=== PATIENT | female | born 1935 | race Caucasian/White ===

== ENCOUNTER 2017-10-19 17:28 | Emergency (ER) | payer OTHER, MEDICAID ==
[~2017-10-19] VITALS: Ht 154.9 cm; Wt 54.4 kg
[~2017-10-19 17:28] MED LIST: AMBIEN5 MG PO; AMOXICILLIN875 MG PO; COMBIVENT INH; DUONEB 2.5-0.5 M3 ML INH; EFFEXOR 5050 MG/1 T1 PO; IRON325 PO; LISINOPRIL5 MG PO; PERCOCET; PREDNISONE 10 M10 MG PO; PROVENTIL HFA6.7 G1 INH; SYMBICORT160 MCG/4. INH; SYNTHROID25 MCG PO; VITAMIN B COMP1 EACH PO; VITAMIN D1000 UNI1 PO
[2017-10-19] MEDS ORDERED: HYDROCODON-ACE1 EAC7 PO (18:34)
[2017-10-19 19:15] VITALS: BP 105/55
== END 2017-10-19 19:16 | disposition home or self-care (01) ==
LOC: M.ERS 17:28
DX: S90.32XA Contusion of left foot, initial encounter (principal); S40.011A Contusion of right shoulder, initial encounter; W01.0XXA Fall on same level from slipping, tripping and stumbling without subsequent striking against object, initial encounter; Y93.89 Activity, other specified; Y92.89 Other specified places as the place of occurrence of the external cause; Y99.8 Other external cause status

== ENCOUNTER 2018-03-01 13:23 | Emergency (ER) | payer OTHER, MEDICAID ==
[~2018-03-01] VITALS: Ht 154.9 cm; Wt 54.4 kg
[~2018-03-01 13:23] MED LIST changes: +HYDROCODON-ACE1 EAC7 PO
[2018-03-01 14:58] VITALS: BP 157/73
== END 2018-03-01 14:59 | disposition home or self-care (01) ==
LOC: M.ERS 13:23
DX: R51 Headache (principal); M54.2 Cervicalgia; J44.9 Chronic obstructive pulmonary disease, unspecified

== ENCOUNTER 2018-08-08 10:43 | Observation (INO) | payer OTHER, MEDICAID ==
[~2018-08-08] VITALS: Ht 154.9 cm; Wt 54.0 kg
[2018-08-08 10:51] VITALS: BP 130/71
[2018-08-08] MEDS ORDERED: COZAAR 25 MG TA25 M1 PO (11:02)
[2018-08-08] MEDS ORDERED: ZOLOFT25 MG PO (11:03)
[2018-08-08] MEDS ORDERED: BROVANA15 MCG/2 M INH (11:03)
[2018-08-08 11:16] LABS: ABSOLUTE BASOPHILS 0.1 thou/uL (0.0-0.2); ABSOLUTE EOSINOPHILS 0.1 thou/uL (0.0-0.7); ABSOLUTE MONOCYTES 0.9 thou/uL (0.0-1.2); ABSOLUTE NEUTROPHILS 5.4 thou/uL (1.6-8.1); BASOPHILS 0.9 %; EOSINOPHILS 0.8 %; HEMATOCRIT 40.6 % (37.0-47.0); LYMPHOCYTES 24.1 %; MCH 33.2 pg (26.0-34.0); MCHC 34.5 g/dL (28.0-37.0); MCV 96.3 fL (80.0-100.0); MONOCYTES 10.1 %; MPV 6.5 fl. (7.2-11.1); NUCLEATED RBCS 0 /100WBC; PLATELET COUNT* 222 thou/uL (150-400); POLYS 64.1 %; RBC 4.22 mil/uL (4.20-5.00); RDW-CV 12.8 % (10.5-14.5); WBC 8.5 thou/uL (4.0-11.0)
[2018-08-08 11:26] LABS: ANION GAP 6 mmol/L (7-16); BUN 10 mg/dL (7-18); CALCIUM 8.8 mg/dL (8.5-10.1); CHLORIDE 105 mmol/L (98-107); CO2 29 mmol/L (21-32); CREATININE 0.7 mg/dL (0.6-1.3); GLUCOSE 96 mg/dL (70-99); POTASSIUM 4.1 mmol/L (3.5-5.1); SODIUM 140 mmol/L (136-145)
[2018-08-08 11:28] LABS: APTT 20.1 Seconds (25.0-31.3); INR 0.9
[2018-08-08 11:36] LABS: ALBUMIN 3.4 g/dL (3.4-5.0); ALKALINE PHOSPHATASE 77 U/L (46-116); LIPASE 122 U/L (73-393); MAGNESIUM 2.3 mg/dL (1.8-2.4); NT-PRO BRAIN NAT PEPTIDE 381 pg/mL (<300); SGOT 24 U/L (15-37); SGPT 26 U/L (30-65); TOTAL BILIRUBIN 0.4 mg/dL (<0.1-1.0); TOTAL PROTEIN 6.4 g/dL (6.4-8.2); TROPONIN-I LEVEL <0.06 ng/mL (<0.06)
[2018-08-08 14:06] VITALS: BP 183/75
--- NOTE | 2018-08-08 14:51 | EKG ---
[place] [address] ELECTROCARDIOGRAM REPORT Name: PROSPER ELAM Room: [address] ADM IN .R.#: [id number] Admission: 08/08/18 Attend Phys: Bernardino Bloom MD Discharge: Date of : 37 Report #: [id number] THIS REPORT FOR: //name// [facility] ED Test Date: 2018-08-08 Test Time: 11:16:24 Pat Name: PROSPER ELAM Department: Room: [facility] Gender: F Train Conductor: Marcelino DOZIER : 1935 Requested By: Hermann Mendosa Order Number: [id number] MD: Bin Saldana Measurements Intervals [place] Rate: 66 P: -81 OR: 73 QRS: 27 QRSD: 85 T: 34 QT: 401 QTc: 421 Interpretive Statements Sinus or ectopic atrial rhythm Ventricular trigeminy Short OR interval Compared to ECG 02/21/2017 08:28:12 Ectopic atrial rhythm now present Ventricular premature complex(es) now present Sinus rhythm no longer present T-wave abnormality no longer present Electronically Signed On 08-08-2018 14:51:21 CDT by Bin Saldana [email or web address] <ELECTRONICALLY SIGNED> By: Bin Saldana MD, FACC 08/08/18 1451 1116 [id number] Bin Saldana MD, FACC /EPI
--- NOTE | 2018-08-08 15:30 | NUR ---
PT TO ROOM,ORIENTED TO ROOM,CALL LIGHT WITHIN REACH
[2018-08-08 21:26] LABS: BE -2.9 mmol/L (-2 to +3); PCO2 35.1 mmHg (35.0-45.0); PO2 72.8 mmHg (75.0-100.0); pH 7.398 (7.340-7.450)
[2018-08-08 21:58] VITALS: BP 133/49
[2018-08-09 04:10] LABS: ABSOLUTE LYMPHOCYTES 1.1 thou/uL (0.8-5.3); ABSOLUTE MONOCYTES 0.1 thou/uL (0.0-1.2); ABSOLUTE NEUTROPHILS 7.3 thou/uL (1.6-8.1); BASOPHILS 0.1 %; HEMATOCRIT 38.3 % (37.0-47.0); HEMOGLOBIN 13.1 gm/dL (12.0-15.0); LYMPHOCYTES 13.4 %; MCH 32.8 pg (26.0-34.0); MCHC 34.2 g/dL (28.0-37.0); MONOCYTES 1.4 %; MPV 6.8 fl. (7.2-11.1); NUCLEATED RBCS 0 /100WBC; PLATELET COUNT* 206 thou/uL (150-400); POLYS 85.1 %; RBC 3.99 mil/uL (4.20-5.00); RDW-CV 12.7 % (10.5-14.5); WBC 8.6 thou/uL (4.0-11.0)
[2018-08-09 04:35] LABS: CALCIUM 9.5 mg/dL (8.5-10.1); CREATININE 0.8 mg/dL (0.6-1.3); MAGNESIUM 2.3 mg/dL (1.8-2.4); POTASSIUM 4.5 mmol/L (3.5-5.1)
--- NOTE | 2018-08-09 05:20 | NUR ---
PT UP AD ONEYDA IN ROOM TO BATHROOM AND CHAIR PRN. HAS SLEPT WELL OVERNIGHT. RECEIVED TYLENOL AT HS FOR CO HEADACHE WITH GOOD RESULTS ROOM AIR SAT 95%. RT TX GIVEN. ABG'S DRAWN. PULMONARY TO CONSULT. LAC SL, SOLUMEDROL GIVEN ORDERED, PO ABX. 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 ABLE TO USE CALL LITE AND MAKE NEEDS KNOWN. DNR. TO HAVE CARDIAC ECHO TODAY.
[2018-08-09 08:00] VITALS: BP 142/66
--- NOTE | 2018-08-09 15:07 | NUR ---
SW met with pt to complete initial assessment, introduce self, and SW role. Pt alert, oriented. Pt continues to live in independent living facility. Pt has a cane if needed. Pt does not have hx with HH or SNF. Pt does not anticipate any dc needs.
[2018-08-09] MEDS ORDERED: AZITHROMYCIN 2250 MG PO (15:52)
[2018-08-09] MEDS ORDERED: PREDNISONE 10 M10 MG PO (15:53)
[2018-08-09 16:10] VITALS: BP 142/66
--- NOTE | 2018-08-09 16:23 | NUR ---
DISCHARGE NOTE - REVIEWED DC INSTRUCTIONS WITH PT. NO QUESTIONS. PREDNISONE AND ZITHROMAX CALLED OUT TO [facility]. ALL BELONGINGS SENT WITH PT. IV REMOVED.
--- NOTE | 2018-08-10 10:04 | CON ---
[address] [address] CONSULTATION Name: PROSPER ELAM Room: [address] [place] Chu#: [id number] Admission: 08/08/18 Attend Phys: Bernardino Bloom MD Discharge: 08/09/18 Date of : 37 Report #: [id number] THIS REPORT FOR: //name// CC: Jono Bloom REQUESTING PHYSICIAN: Dr. Bloom. REASON FOR CONSULTATION: History of chronic obstructive pulmonary disease. DISCUSSION: The patient is a pleasant 83-year-old nonsmoking woman who has a history of underlying COPD as well as restrictive lung disease. She has not been steroid or O2 dependent. She has been a longtime patient of my partner, Dr. Ge in our office. Her last visit with him was back in 01/2018. She was admitted to [facility] due to several days of increasing shortness of breath. She does believe it was related to the weather change. She was having a bit more cough and congestion, though did not feel like she had a significant infection. She was doing nebulizer treatments at home, but she was still having a lot of wheezing. No fevers. No chest pain, no syncopal episodes. She was admitted, was started on inhaled bronchodilators and IV steroids. When I saw her this afternoon, she is feeling good. In fact, she is asking if she can go home. She is a lifelong nonsmoker. She did have a left lower lobectomy done when she was in her 30s. She noted she has had significant pneumonia when she was a child and had recurrent infections. Based on her history, I suspect she probably had bronchiectasis. No history of TB or exposure to tuberculosis. [place] exposure. No TB history. When she last had spirometry done, it was consistent with a combined obstructive and restrictive process. Her FEV1 was 0.93, which was 49% of predicted. Her FEV1/FVC ratio was 66%. Overall, her flows were stable. Mid flows were severely decreased. She intermittently has required short courses of steroids. She has O2 at home. I do not have access to the type of testing that was done, but I do note she was ambulated in the office in 01/2018. She had no desaturation and there was no need for O2 with exertion at that time. She does relate she has had overnight oximetry done in the past, though I do not have access to those results. She has not been consistently sleeping with it at night. Reviewing our office notes and talking with her, there is somewhat of a discrepancy on her medications. She does have a DuoNeb, which she does at least 4 times a day. She tells me she also has Brovana, which she does twice a day. Has Symbicort at home, but she uses that "p.r.n." If she is on Brovana, patients would not normally also be taking Symbicort. 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 She is up-to-date I believe with her immunizations. [address] [address] CONSULTATION Name: PROSPER ELAM Room: [address] [place] Chu#: [id number] Admission: 08/08/18 Attend Phys: Bernardino Bloom MD Discharge: 08/09/18 Date of : 37 Report #: [id number] She has been afebrile here in the hospital. She is on room air. Again, she is feeling quite good. Has had minimal cough, her secretions have been clear. No fevers. PAST MEDICAL HISTORY: Besides the COPD is remarkable also for the prior left thoracotomy with lobectomy done for presumed bronchiectasis. She has had ACDF cervical spine in 2011, several lumbar spine surgeries, bilateral shoulder surgeries, prior appendectomy, kyphoplasty, cataract surgery, hypertension, GERD, osteoporosis, adrenal lesions. SOCIAL HISTORY: She is a lifelong nonsmoker. She is retired. Lives in a senior housing. FAMILY HISTORY: Positive for breast cancer, coronary artery disease, and diabetes. REVIEW OF SYSTEMS: ROS was done. Note positives above. No chest pain, no syncopal episodes. Denies any difficulty swallowing. Not have any major issues with indigestion, heartburn. No nausea, vomiting, no diarrhea. No lower extremity edema. No recent skin rashes. Does have some joint pains primarily in her knees. Does limit some of her mobility. No falls. PHYSICAL EXAMINATION: GENERAL APPEARANCE: Pleasant woman who looks stated age. She was seen while sitting up in the chair. She is alert, cooperative, able to speak in full sentences. VITAL SIGNS: She is on room air. HEENT: Head is normocephalic. Sclerae nonicteric. Mucous membranes are moist. NECK: Negative for adenopathy. No JVD. No supraclavicular adenopathy. HEART: Regular. Just minimally tachycardic, no S3 is heard. Tones are little distant. CHEST: On the chest, she has a well-healed left thoracotomy scar. LUNGS: Show breath sounds to be mildly diminished. No wheezing or crackles are heard. Slight prolongation of expiratory phase. She is kyphotic. No CVA tenderness. ABDOMEN: Obese, but soft. EXTREMITIES: She has some arthritic changes of her hands, but no clubbing. Lower extremities turgor is fair. No definite edema is noted. No calf tenderness. SKIN: Warm and dry. NEUROLOGIC: She is alert and oriented x 3. LABORATORY AND X-RAY FINDINGS: She did have a CT chest done on 01/2018 at [facility]. It does show postop changes with evidence of a left lower lobe lobectomy. 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 She had a noncalcified nodule in the right middle lobe. It appears that was seen previously on older imaging at [facility] and had not changed in size. She did have other small noncalcified lymph nodes noted as well as some nodules. IMPRESSION: 1. Recent chronic obstructive pulmonary disease exacerbation, improved. this afternoon. Has also been weaned off the oxygen. 2. Chronic obstructive pulmonary disease, baseline, does have severe disease. However, flows were stable on last spirometry done by Dr. Ge. Also, has a component of restrictive lung disease related to her marked kyphosis. Also, known large hiatal hernia. 3. Hypoxemia, improved. 4. History of hypertension. 5. Remote history of requiring left lower lobe lobectomy for presumed bronchiectasis. Definitely did not have malignant disease. RECOMMENDATIONS: 1. Discharge anytime is okay with us. She already has an appointment in a week with Dr. Ge and she will keep that. 2. Would suggest prednisone taper. 3. Resume use of her albuterol and ipratropium bromide at least 4 times a day with the Brovana twice a day. No need to use Symbicort while she is doing her Brovana. 4. Suggested she sleep with her O2 at night at this time pending evaluation with Dr. Ge. May need to have O2 needs intermittently evaluated, these all certainly can change management specialist time. <ELECTRONICALLY SIGNED> By: Lorie Arredondo MD 08/10/18 1004 [id number] Arredondo MD /nt
--- NOTE | 2018-08-10 15:45 | NUR ---
PT. DISCHARGED TO HOME PRIOR TO O.T. EVAL. PLEASE ORDER FURTHER O.T. SERVICES IF NEEDED.
== END 2018-08-09 16:20 | disposition home or self-care (01) ==
LOC: M.ERS 10:43 → M.TBA-ER 12:04 → M.3W 12:04
PROVIDERS: Family Medicine; ADMIT Family Medicine
DX: J96.21 Acute and chronic respiratory failure with hypoxia (principal); J44.1 Chronic obstructive pulmonary disease with (acute) exacerbation; E03.9 Hypothyroidism, unspecified; F41.9 Anxiety disorder, unspecified; I10 Essential (primary) hypertension; E46 Unspecified protein-calorie malnutrition; K21.9 Gastro-esophageal reflux disease without esophagitis; M81.0 Age-related osteoporosis without current pathological fracture; Z90.2 Acquired absence of lung [part of]; Z90.89 Acquired absence of other organs

== ENCOUNTER → 2018-11-06 | Outpatient (CLI) | payer OTHER, MEDICAID ==
[~2018-11-06] MED LIST changes: +AZITHROMYCIN 2250 MG PO; +BROVANA15 MCG/2 M INH; +COZAAR 25 MG TA25 M1 PO; +IBUPROFEN 400400 M1 PO; +ZOLOFT25 MG PO
== END ==
LOC: M.PC 05:01
DX: M51.36 Other intervertebral disc degeneration, lumbar region (principal); M47.816 Spondylosis without myelopathy or radiculopathy, lumbar region

== ENCOUNTER 2019-10-07 15:32 | Emergency (ER) | payer OTHER, MEDICAID ==
[~2019-10-07] VITALS: Ht 152.4 cm; Wt 54.4 kg
[2019-10-07] MEDS ORDERED: BACTRIM DS TAB1 EACH PO (16:48)
[2019-10-07] MEDS ORDERED: KEFLEX500 M1 PO (16:48)
[2019-10-07 16:56] VITALS: BP 170/85
== END 2019-10-07 16:58 | disposition home or self-care (01) ==
LOC: M.ERS 15:32
DX: L03.115 Cellulitis of right lower limb (principal); J44.9 Chronic obstructive pulmonary disease, unspecified; Z88.1 Allergy status to other antibiotic agents

== ENCOUNTER 2020-08-01 19:01 | Emergency (ER) | payer OTHER, MEDICAID ==
[~2020-08-01] VITALS: Ht 160 cm; Wt 72.6 kg
[~2020-08-01 19:01] MED LIST changes: +BACTRIM DS TAB1 EACH PO; +KEFLEX500 M1 PO
[2020-08-01] MEDS ORDERED: COZAAR 25 MG TA25 M1 PO (19:16)
[2020-08-01] MEDS ORDERED: SERTRALINE HCL100 MG PO (19:17)
[2020-08-01 19:38] LABS: ABSOLUTE EOSINOPHILS 0.1 thou/uL (0.0-0.7); ABSOLUTE LYMPHOCYTES 2.2 thou/uL (0.8-5.3); ABSOLUTE MONOCYTES 0.6 thou/uL (0.0-1.2); ABSOLUTE NEUTROPHILS 3.2 thou/uL (1.6-8.1); BASOPHILS 0.4 %; EOSINOPHILS 1.3 %; HEMATOCRIT 38.6 % (37.0-47.0); HEMOGLOBIN 13.6 gm/dL (12.0-15.0); LYMPHOCYTES 36.1 %; MCH 34.2 pg (26.0-34.0); MCHC 35.2 g/dL (28.0-37.0); MCV 97.2 fL (80.0-100.0); MPV 6.3 fl. (7.2-11.1); NUCLEATED RBCS 0 /100WBC; PLATELET COUNT* 224 thou/uL (150-400); POLYS 52.2 %; RBC 3.97 mil/uL (4.20-5.00); RDW-CV 12.9 % (10.5-14.5); WBC 6.1 thou/uL (4.0-11.0)
[2020-08-01 19:41] LABS: URINE BILIRUBIN NEGATIVE (Negative); URINE BLOOD NEGATIVE (Negative); URINE CLARITY CLEAR; URINE COLOR YELLOW; URINE GLUCOSE-RANDOM NEGATIVE (Negative); URINE KETONES NEGATIVE (Negative); URINE LEUKOCYTES-REFLEX NEGATIVE (Negative); URINE NITRITE-REFLEX NEGATIVE (Negative); URINE PROTEIN NEGATIVE (Negative)
[2020-08-01 19:48] LABS: CALCIUM 8.9 mg/dL (8.5-10.1); CREATININE 0.7 mg/dL (0.6-1.3); POTASSIUM 3.9 mmol/L (3.5-5.1)
[2020-08-01 19:49] LABS: INR 0.9; PROTIME 9.7 Seconds (9.20-11.50)
[2020-08-01 19:58] LABS: ALBUMIN 3.6 g/dL (3.4-5.0); MAGNESIUM 2.4 mg/dL (1.8-2.4); TOTAL BILIRUBIN 0.3 mg/dL (<0.1-1.0); TOTAL PROTEIN 6.4 g/dL (6.4-8.2)
[2020-08-01 21:57] VITALS: BP 142/70
--- NOTE | 2020-08-02 15:26 | EKG ---
[place] [address] ELECTROCARDIOGRAM REPORT Name: PROSPER ELAM Room: [facility]#: [id number] Admission: 08/01/20 Attend Phys: Discharge: 08/01/20 Date of : 37 Date of Service: 08/01/201912 Report #: [id number] THIS REPORT FOR: //name// [facility] ED Test Date: 2020-08-01 Test Time: 19:13:02 Pat Name: PROSPER ELAM Department: Room: Gender: F Fitness Worker: : 1935 Requested By: Lauren Paz Order Number: [id number] MD: Fadi Young Measurements Intervals [place] Rate: 65 P: 8 AR: 139 QRS: 91 QRSD: 85 T: 23 QT: 415 QTc: 432 Interpretive Statements Sinus rhythm Right axis deviation Compared to ECG 08/08/2018 11:16:24 Right-axis deviation now present Ectopic atrial rhythm no longer present Ventricular premature complex(es) no longer present Short AR interval no longer present Electronically Signed On 08-02-2020 15:26:33 CDT by Fadi Young [email or web address] <ELECTRONICALLY SIGNED> By: Fadi Young MD, [facility] 08/02/20 1526 12 12 Fadi Young MD, [facility] /EPI
== END 2020-08-01 21:57 | disposition home or self-care (01) ==
LOC: M.ERS 19:01
PROVIDERS: Emergency Medicine
DX: I10 Essential (primary) hypertension (principal); J44.9 Chronic obstructive pulmonary disease, unspecified; Z88.1 Allergy status to other antibiotic agents; Z79.899 Other long term (current) drug therapy